=== PATIENT | female | born 1975 | race Two or more races ===

== ENCOUNTER 2020-04-08 02:11 | Emergency (ER) | payer SELFPAY ==
[~2020-04-08] VITALS: Ht 152.4 cm; Wt 125.6 kg
[2020-04-08 03:56] LABS: Basophils # (auto) 0.1 10 ^3/uL (0-0.2); Basophils % (auto) 0.5 % (0.0-2.0); Eosinophils # (auto) 0.1 10 ^3/uL (0-0.8); Eosinophils % (auto) 0.3 % (0.0-7.0); Hematocrit 41.3 % (36.0-46.0); Hemoglobin 13.8 g/dL (12.2-16.2); Lymphocytes # (auto) 0.7 10 ^3/uL (0.4-5.4); Lymphocytes % (auto) 4.8 % (10.0-50.0); Mean Corpuscular Hemoglobin 28.9 pg (28.0-32.0); Mean Corpuscular Hgb Conc. 33.4 g/dL (32.0-36.0); Mean Corpuscular Volume 86.5 fL (80.0-100.0); Monocytes # (auto) 0.6 10 ^3/uL (0-1.3); Monocytes % (auto) 4.2 % (0.0-12.0); Neutrophils # (auto) 13.8 10 ^3/uL (1.6-8.6); Neutrophils % (auto) 90.2 % (37.0-80.0); Platelet Count (auto) 382 10^3/uL (140-450); Red Blood Cells 4.78 10^6/uL (4.0-5.20); White Blood Cell 15.3 10^3/uL (4.4-10.8)
[2020-04-08 04:34] LABS: Alanine Aminotransferase 29 U/L (13-56); Albumin 4.1 g/dL (3.4-5.0); Anion Gap 9 (5-15); Aspartate Aminotransferase 17 U/L (15-37); BUN/Creatinine Ratio 14.9; Blood Urea Nitrogen 10 mg/dL (7-18); Calcium 8.4 mg/dL (8.5-10.1); Carbon Dioxide 21 mmol/L (21-32); Chloride 106 mmol/L (98-107); GFR African American 123 mL/min; GFR Non-African American 102 mL/min; Glucose 127 mg/dL (74-106); Magnesium 2.1 mg/dL (1.6-2.6); Potassium 3.5 mmol/L (3.5-5.1); Sodium 136 mmol/L (136-145)
[2020-04-08 04:39] LABS: Alkaline Phosphatase 60 U/L (45-117); Bilirubin, Total 1.2 mg/dL (0.2-1.0); Total Protein 7.9 g/dL (6.4-8.2)
[2020-04-08 04:41] LABS: INR 0.97 (0.9-1.15); Partial Thromboplastin Time 25.9 sec (23.0-31.2)
[2020-04-08] MEDS ORDERED: SODIUM CHLORIDE 0.9% 1,000 ML IV ONE ×2 (07:15)
[2020-04-08] MEDS ORDERED: ONDANSETRON HCL 4 MG/2 ML VIAL IV ONE (07:15)
[2020-04-08] MEDS ORDERED: KETOROLAC TROMETH 30 MG/ML 1ML VIAL IV ONE (09:15)
[2020-04-08 09:32] VITALS: BP 138/76
== END 2020-04-08 03:33 | disposition home or self-care (01) ==
LOC: ER 02:11
DX: K52.9 Noninfective gastroenteritis and colitis, unspecified (principal); D72.829 Elevated white blood cell count, unspecified; E86.0 Dehydration; K80.80 Other cholelithiasis without obstruction
CPT/HCPCS: 36415; 71045; 74176; 80053; 83735; 83880; 84443; 84484; 85025; 85610; 85730; 96361; 96374; 96375; 99285; J1885; J2405; J7030

== ENCOUNTER 2025-03-16 06:07 | Inpatient (IN) | payer MEDICAID ==
[2025-03-14 14:14] LABS: Hematocrit 39.8 % (36.0-46.0); Hemoglobin 13.5 g/dL (12.2-16.2); Mean Corpuscular Hemoglobin 28.9 pg (28.0-32.0); Mean Corpuscular Volume 85.1 fL (80.0-100.0); Nucleated Red Blood Cells % 0.1 %
[2025-03-14 14:20] LABS: Urine Protein, UAD Negative (Negative)
[2025-03-14 14:27] LABS: INR 1.02 (0.9-1.15); Partial Thromboplastin Time 26.0 SEC (24.5-34.5); Prothrombin Time 10.8 sec (9.3-11.8)
[2025-03-14 14:41] LABS: Alanine Aminotransferase 23 U/L (7-40); Alkaline Phosphatase 63 U/L (46-116); Calcium 9.4 mg/dL (8.7-10.4); Carbon Dioxide 26 mmol/L (20-31); Chloride 106 mmol/L (98-107); Glucose 91 mg/dL (74-106)
[2025-03-14 14:42] LABS: Albumin 4.7 g/dL (3.2-4.8); Anion Gap 11 (5-15); BUN/Creatinine Ratio 9.5 (10.0-20.0); Potassium 4.1 mmol/L (3.5-5.1); Sodium 143 mmol/L (136-145); Total Protein 7.4 g/dL (5.7-8.2)
[2025-03-14 14:47] LABS: Bilirubin, Total 1.3 mg/dL (0.2-1.0); Blood Urea Nitrogen 7 mg/dL (9-23)
[~2025-03-16] VITALS: Ht 154.9 cm; Wt 77.4 kg
[2025-03-16] MEDS ORDERED: hydrALAZINE HCL 20 MG/ML VL IV PRN (07:15)
[2025-03-16] MEDS ORDERED: METOCLOPRAMIDE HCL 5MG/ml INJ 2ml VIAL IV PRN (07:15)
[2025-03-16] MEDS ORDERED: fentaNYL CITRATE 100 MCG/2 ML VL ONE (07:15)
[2025-03-16] MEDS ORDERED: HYDROmorphone HCL 2 MG/ML VL/or syr IV PRN (07:15)
[2025-03-16] MEDS ORDERED: MIDAZOLAM HCL 2MG/2ML 2ml VIAL (1mg/ml) ONE (07:16)
[2025-03-16] MEDS ORDERED: METOCLOPRAMIDE HCL 5MG/ml INJ 2ml VIAL ONE (07:16)
[2025-03-16] MEDS ORDERED: LIDOCAINE 2% (LOCAL ANESTH.) PF 5ml SDV ONE (07:16)
[2025-03-16] MEDS ORDERED: PROPOFOL 10 MG/ML 20 ML IV ONE (07:16)
[2025-03-16] MEDS ORDERED: ONDANSETRON HCL 4 MG/2 ML VIAL ONE (07:16)
[2025-03-16] MEDS ORDERED: ROCURONIUM 10MG/ML 10ML VIAL IV ONE (07:16)
[2025-03-16] MEDS ORDERED: HYDROmorphone HCL 2 MG/ML VL/or syr ONE (07:52)
[2025-03-16] MEDS ORDERED: SUGAMMADEX 200mg/2ml Vial (100MG/ML) IV ONE (07:57)
[2025-03-16] MEDS: LIDOCAINE W/ EPINEPHRINE 1% 20ML VIAL ONE (08:06)
[2025-03-16] MEDS: BUPIVACAINE HCL 0.25% P/F 10 ML VIAL ONE (08:06)
[2025-03-16 08:26] VITALS: O2SAT 99
--- NOTE | 2025-03-16 08:48 | DVHOP ---
DATE OF SURGERY: 03/16/2025 PREOPERATIVE DIAGNOSES: Cholelithiasis, cholecystitis. POSTOPERATIVE DIAGNOSES: Cholelithiasis, cholecystitis. SURGEON: Robles Waldron MD. DIRECTOR EMPLOYEE COMMUNICATIONS: Justin Kitchen NP. ANESTHESIA: General endotracheal. ANESTHESIOLOGIST: Fernando Wiseman. PROCEDURES: Laparoscopy, laparoscopic cholecystectomy. DESCRIPTION OF PROCEDURE: Under general endotracheal anesthesia with the patient's skin prepped and draped, a supraumbilical incision was made and Veress needle inserted by the hanging drop technique to establish pneumoperitoneum to 15 mmHg pressure by insufflation with carbon dioxide. With the abdomen fully distended, the needle was removed and replaced with a 5 mm trocar port through which a 0-degree viewing laparoscope was inserted and under direct vision, additional 5 and 10 mm ports inserted, the 5 mm at the anterior axillary line on the right at the level of the umbilicus, the 10 mm port in the subxiphoid midline skin. Instrumentation was introduced and laparoscopy was performed. Laparoscopic examination revealed no unexpected pathology on the serosal surfaces visualized. The gallbladder was affected by acute cholecystitis with chronic changes. Adhesions between the omentum and the gallbladder were lysed sharply. The gallbladder was placed on tension. The cystic duct and cystic artery were identified, circumferentially dissected and traced into the hepatocystic triangle. The cystic duct was exceedingly short. It was skeletonized and the cystic duct and cystic artery were then divided between metallic strips as far away from the common duct as feasible, despite the short length of the cystic duct. Following division of these structures, the gallbladder was resected from its liver bed by electrocautery and traction. The fully mobilized gallbladder was extracted from the peritoneal cavity by placement in a specimen extraction bag, which was withdrawn through the 10 mm port site. The right upper quadrant was irrigated. Irrigant was aspirated. Hemostasis was meticulously inspected and found to be complete at the termination of the procedure. There was no evidence of bleeding from either the port sites or from the liver bed of the gallbladder. Instrumentation was withdrawn. Pneumoperitoneum was evacuated. Fascial defect closed using #0 Vicryl. The wounds were approximated using Monocryl sutures, Dermabond, glue, and Steri-Strips. The patient remained stable throughout the procedure, left the operating room following an accurate needle and sponge count. Her was thoroughly informed by phone. Robles Waldron MD PF/CONNER TID: [id number] RECEIPT: [id number]
[2025-03-16] MEDS ORDERED: D5W/SOD CHL 0.45%/KCL 20MEQ 1,000 ML IV SCH (09:45)
[2025-03-16] MEDS ORDERED: NITROGLYCERIN 0.4 MG SL TAB SL PRN (09:45)
[2025-03-16] MEDS ORDERED: MORPHINE SULFATE INJ 2 MG/ml SYRG IV PRN (09:45)
[2025-03-16] MEDS: ceFAZolin 2 GM/D5W50ml 50 ML IV ONE (10:00)
[2025-03-16] MEDS: ACETAMINOPHEN IV 1000 MG/100ML (10MG/ML) IV ONE (10:00)
[2025-03-16] MEDS: PANTOPRAZOLE 40 MG/10 ML VIAL INJ IV SCH (10:00)
--- NOTE | 2025-03-16 10:22 | DVHHP2 ---
Review of Systems Allergies: Coded Allergies: NO KNOWN ALLERGIES (Unverified , 03/16/25) Medications Current Medications Medications Dose Ordered Sig/Enrique Route Start Time Stop Time Status Last Admin Dose Admin Nitroglycerin 0.4 mg Q5MINP PRN SL 03/16/25 09:45 Morphine Sulfate 2 mg Q30M PRN IV 03/16/25 09:45 Potassium Chloride/Dextrose/ Sod Cl 1,000 ml @ 120 mls/hr Q8H20M IV 03/16/25 09:45 Cefazolin Sodium/ Dextrose 50 ml @ 50 mls/hr Q8HR IV 03/16/25 14:00 Hydromorphone HCl 1 mg Q3HPRN PRN IV 03/16/25 09:45 Acetaminophen/ Codeine Phosphate 1 tab Q4HP PRN PO 03/16/25 09:45 Pantoprazole Sodium 40 mg DAILY IV 03/16/25 10:00 Ondansetron HCl 4 mg Q4HPRN PRN IV 03/16/25 09:45 Exam Vital Signs Vital Signs Date Time Temp Pulse Resp B/P (MAP) Pulse Ox O2 Delivery O2 Flow Rate FiO2 03/16/25 09:45 60 10 103/62 (76) 97 03/16/25 09:38 Room Air 0 96 03/16/25 08:26 97.4 97.4 Labs/Xrays Labs Test 03/16/25 08:43 03/14/25 13:52 Range/Units POC Glucose 129 H 70-106 mg/dl White Blood Count 7.1 4.4-10.8 10^3/uL Red Blood Count 4.67 4.0-5.20 10^6/uL Hemoglobin 13.5 12.2-16.2 g/dL Hematocrit 39.8 36.0-46.0 % Mean Corpuscular Volume 85.1 80.0-100.0 fL Mean Corpuscular Hemoglobin 28.9 28.0-32.0 pg Mean Corpuscular Hemoglobin Concent 34.0 32.0-36.0 g/dL Red Cell Distribution Width 13.3 11.8-14.3 % Platelet Count 330 140-450 10^3/uL Mean Platelet Volume 7.1 6.9-10.8 fL Neutrophils (%) (Auto) 66.1 37.0-80.0 % Lymphocytes (%) (Auto) 18.1 10.0-50.0 % Monocytes (%) (Auto) 6.3 0.0-12.0 % Eosinophils (%) (Auto) 8.3 H 0.0-7.0 % Basophils (%) (Auto) 1.2 0.0-2.0 % Neutrophils # (Auto) 4.7 1.6-8.6 10 ^3/uL Lymphocytes # (Auto) 1.3 0.4-5.4 10 ^3/uL Monocytes # (Auto) 0.4 0-1.3 10 ^3/uL Eosinophils # (Auto) 0.6 0-0.8 10 ^3/uL Basophils # (Auto) 0.1 0-0.2 10 ^3/uL Nucleated Red Blood Cells 0.1 % Prothrombin Time 10.8 9.3-11.8 sec Prothrombin Time INR 1.02 0.9-1.15 Activated Partial Thromboplast Time 26.0 24.5-34.5 SEC Urine Color Light-yellow Yellow Urine Clarity Clear Clear Urine pH 6.5 5.0-9.0 Urine Specific [place] 1.023 1.001-1.035 Urine Protein Negative Negative Urine Ketones Negative Negative Urine Blood Trace H Negative /uL Urine Nitrite Negative Negative Urine Bilirubin Negative Negative Urine Urobilinogen Normal Negative mg/dL Urine Leukocyte Esterase Negative Negative /uL Urine RBC 5 0 - 4 /hpf Urine Microscopic WBC 2 0-5 /HPF Urine Squamous Epithelial Cells Few <5 /hpf Urine Bacteria None seen None Seen /hpf Urine Mucus Few None Seen Urine Glucose Normal Normal mg/dL Urine Test Negative Negative Sodium Level 143 136-145 mmol/L Potassium Level 4.1 3.5-5.1 mmol/L Chloride Level 106 98-107 mmol/L Carbon Dioxide Level 26 20-31 mmol/L Anion Gap 11 5-15 Blood Urea Nitrogen 7 L 9-23 mg/dL Creatinine 0.74 0.550-1.02 mg/dL Glomerular Filtration Rate Calc 99 >90 mL/min BUN/Creatinine Ratio 9.5 L 10.0-20.0 Serum Glucose 91 74-106 mg/dL Calcium Level 9.4 8.7-10.4 mg/dL Total Bilirubin 1.3 H 0.2-1.0 mg/dL Aspartate Amino Transferase (AST) 21 13-40 U/L Alanine Aminotransferase (ALT) 23 7-40 U/L Alkaline Phosphatase 63 46-116 U/L Total Protein 7.4 5.7-8.2 g/dL Albumin 4.7 3.2-4.8 g/dL SEPSIS Sepsis Screen Physician Orders Oxygen By Face Mask (03/16/25 07:05) Weather Analyst (03/16/25 07:05) Notify Anesth. For Changes: (03/16/25 07:05) Pulse Ox Assessment (03/16/25 07:05) Discharge To Room Per Criteria (03/16/25 07:05) Admit (03/16/25:31) Oxygen By Nasal Cannula (03/16/25:) Nitroglycerin Sublingual (Ntrostat Subli (03/16/25 09:45) Morphine Sulfate Injection (03/16/25 09:45) Stat Ekg For Chest Pain (03/16/25:) Notify Md Of Changes From Base (03/16/25:) Emergency Dysrhythmia Protocol (03/16/25:) To Pacu For Recovery (03/16/25 09:39) Oxygen Via Cool Mist Mask (03/16/25 09:39) Incentive Spirometry Q 1hr (03/16/25 09:39) Abdominal Binder (03/16/25 09:39) Sequential Compression Device (03/16/25 09:39) Clear Liq Diet (03/16/25 Lunch) Bilirubin, Total (03/17/25 04:00) D5w/Sod Chl 0.45%/Kcl 20meq (03/16/25 09:45) Cefazolin 2 Gm/J0y30tv (Ancef) (03/16/25 14:00) Hydromorphone Injection (Dilaudid Inject (03/16/25 09:45) Acetaminophen/Codeine Tablet (Tylenol W/ (03/16/25 09:45) Pantoprazole (Protonix) (03/16/25 10:00) Ondansetron Hcl (Zofran) (03/16/25 09:45) Page Hospitalist For Admission (03/16/25 09:39) Complete Blood Count (03/17/25 06:00) Comprehensive Metabolic Panel (03/17/25 06:00) Hemoglobin A1c (03/17/25 06:00) Glucose Blood (Accu-Chek Comfort Curve T (03/16/25 11:30) Mild Sliding Scale (03/16/25 11:30) Dextrose 50% Syringe (03/16/25 10:30) Vital Signs Date Time Temp Pulse Resp B/P (MAP) Pulse Ox O2 Delivery O2 Flow Rate FiO2 03/16/25 09:45 60 10 103/62 (76) 97 03/16/25 09:38 Room Air 0 96 03/16/25 09:26 56 10 110/57 (74) 99 03/16/25 09:11 62 11 108/62 (77) 99 03/16/25 08:56 70 10 122/59 (80) 98 03/16/25 08:41 Room Air 0 100 03/16/25 08:41 72 11 108/53 (71) 100 03/16/25 08:36 66 10 91/43 (59) 100 03/16/25 08:31 73 12 99/46 (63) 99 03/16/25 08:26 97.4 67 14 88/45 (59) 99 97.4 03/16/25 08:26 99 Mask 8.0 03/16/25 06:45 97.6 75 20 161/99 (119) 98 97.6 Medications Medications Dose Ordered Sig/Enrique Route Start Time Stop Time Status Last Admin Dose Admin Bupivacaine HCl 10 ml STK-MED ONCE .ROUTE 03/16/25 07:05 03/16/25 07:04 DC 03/16/25 08:06 10 ML Lidocaine/ Epinephrine 20 ml STK-MED ONCE .ROUTE 03/16/25 07:05 03/16/25 07:04 DC 03/16/25 08:06 10 ML Assessment/Plan Assessment/Plan SEE DICTATED NOTE Plan discussed with: Patient My Orders Orders - SANTA PERALTA MD Procedure Category Date Status Time Admit ADMIT 03/16/25 Transmitted 09:31 Oxygen By Nasal RT 03/16/25 Transmitted Cannula 09:31 Nitroglycerin PHA 03/16/25 In Process Sublingual (Ntrostat 09:45 Morphine Sulfate PHA 03/16/25 In Process Injection 09:45 Stat Ekg For Chest RAMONE 03/16/25 In Process Pain 09:31 Notify Md Of Changes RAMONE 03/16/25 In Process From Base 09:31 Emergency Dysrhythmia RAMONE 03/16/25 In Process Protocol 09:31 Complete Blood Count LAB 03/17/25 Verified 06:00 Comprehensive LAB 03/17/25 Verified Metabolic Panel 06:00 Hemoglobin A1c LAB 03/17/25 Verified 06:00 Glucose Blood PHA 03/16/25 Transmitted (Accu-Chek Comfort 11:30 Mild Sliding Scale PHA 03/16/25 Transmitted 11:30 Dextrose 50% Syringe PHA 03/16/25 Transmitted 10:30 Date of Service: Mar 16, 2025 Billing Provider: SANTA PERALTA MD Common Visit Codes: [id number] INP/OBS CARE (HIGH) SANTA PERALTA MD Mar 16, 2025 10:22
[2025-03-16] MEDS ORDERED: DEXTROSE (50%) 50ML SYRG IV PRN (10:30)
[2025-03-16] MEDS: LACTATED RINGER'S 1,000 ML IV SCH (10:30)
--- NOTE | 2025-03-16 10:30 | DVHHP ---
ADMIT DATE: 03/16/2025 HISTORY OF PRESENT ILLNESS: The patient is a 49-year-old lady who is admitted after she underwent laparoscopic cholecystectomy for cholelithiasis and chronic cholecystitis. The patient at this time denies any significant pain. No chest pain, no shortness of breath, no nausea or vomiting. REVIEW OF SYSTEMS: Review of rest of the systems is otherwise currently negative. PAST MEDICAL HISTORY: Significant for diabetes, hypertension, hyperlipidemia. MEDICATIONS: Unknown at this time. ALLERGIES: No known drug allergies. SOCIAL HISTORY: Denies smoking or alcohol. Lives at home with family. FAMILY HISTORY: Negative. PHYSICAL EXAMINATION: GENERAL: The patient is awake and alert. VITAL SIGNS: Temperature of 97.4, pulse 60 per minute, blood pressure 103/62. SHEENT: Unremarkable. NECK: There is no JVD, no pedal edema. LUNGS: Equal bilaterally. No added sounds. CARDIOVASCULAR: S1 and S2 is regular without murmurs. ABDOMEN: Soft. Bowel sounds are hypoactive. NEUROLOGIC: Nonfocal. MUSCULOSKELETAL: Normal. ASSESSMENT AND PLAN: * Diabetes mellitus, for which she will be placed on sliding scale insulin. * Hypertension, for which blood pressure will be monitored. * Obesity. * Hyperlipidemia. * Status post laparoscopic cholecystectomy for cholelithiasis and chronic cholecystitis. The patient will be placed on a clear liquid diet with IV fluids and pain medications. Arun Paulson MD JLN/EKT TID: [id number] RECEIPT: [id number]
[2025-03-16] MEDS: ACCU-CHEK COMFORT CURVE STRIP VI SCH (11:30)
[2025-03-16] MEDS: InsuLIN REG 1unit/0.01ml Soln (100units/ml) SC SCH (11:30)
[2025-03-16] MEDS: ONDANSETRON HCL 4 MG/2 ML VIAL IV PRN ×2 (11:31→14:15)
[2025-03-16 12:15] VITALS: BP 118/72; PULSE 78; RESP 17; TEMP 97.4; O2SAT 97
[2025-03-16 13:00] VITALS: BP 115/85; PULSE 77; RESP 17; TEMP 97.4; O2SAT 97
[2025-03-16] MEDS: ceFAZolin 2 GM/D5W50ml 50 ML IV SCH (13:59)
[2025-03-16 17:00] VITALS: BP 125/78; PULSE 75; RESP 16; TEMP 98.2; O2SAT 98
[2025-03-16 20:00] VITALS: PULSE 89; RESP 18; O2SAT 96
[2025-03-16 21:00] VITALS: BP 116/70; PULSE 89; RESP 18; TEMP 98.1; O2SAT 96
[2025-03-16] MEDS: ACETAMINOPHEN/CODEINE#3 (300/30mg) TAB PO PRN (22:20)
[2025-03-17] VITALS (7 sets, daily range): BP systolic 103–135; BP diastolic 63–91; PULSE 75–89; RESP 18–20; TEMP 98.1–99.5; O2SAT 91–96
[2025-03-17 05:52] LABS: Hematocrit 36.0 % (36.0-46.0); Hemoglobin 12.3 g/dL (12.2-16.2); Mean Corpuscular Hemoglobin 29.4 pg (28.0-32.0); Mean Corpuscular Volume 86.0 fL (80.0-100.0); Nucleated Red Blood Cells % 0.0 %
[2025-03-17 06:06] LABS: Alkaline Phosphatase 55 U/L (46-116); Anion Gap 11 (5-15); BUN/Creatinine Ratio 10.6 (10.0-20.0); Carbon Dioxide 25 mmol/L (20-31); Chloride 105 mmol/L (98-107); Glucose 104 mg/dL (74-106); Potassium 3.6 mmol/L (3.5-5.1); Sodium 141 mmol/L (136-145); Total Protein 6.2 g/dL (5.7-8.2)
[2025-03-17 06:08] LABS: Albumin 3.8 g/dL (3.2-4.8)
[2025-03-17 06:13] LABS: Alanine Aminotransferase 46 U/L (7-40); Bilirubin, Total 1.8 mg/dL (0.2-1.0); Blood Urea Nitrogen 7 mg/dL (9-23); Calcium 8.6 mg/dL (8.7-10.4)
[2025-03-17] MEDS: HYDROmorphone HCL 2 MG/ML VL/or syr IV PRN (13:48)
--- NOTE | 2025-03-17 14:35 | DVHDS2 ---
Discharge Summary Date of Admission Mar 16, 2025 at 09:31 Date of Discharge: Mar 17, 2025 Labs/Diagnostic Data: Laboratory Results Test 03/17/25 12:00 03/17/25 04:44 03/14/25 13:52 POC Glucose 120 mg/dl (70-106) White Blood Count 10.4 10^3/uL (4.4-10.8) Red Blood Count 4.19 10^6/uL (4.0-5.20) Hemoglobin 12.3 g/dL (12.2-16.2) Hematocrit 36.0 % (36.0-46.0) Mean Corpuscular Volume 86.0 fL (80.0-100.0) Mean Corpuscular Hemoglobin 29.4 pg (28.0-32.0) Mean Corpuscular Hemoglobin Concent 34.2 g/dL (32.0-36.0) Red Cell Distribution Width 13.3 % (11.8-14.3) Platelet Count 257 10^3/uL (140-450) Mean Platelet Volume 7.4 fL (6.9-10.8) Neutrophils (%) (Auto) 79.7 % (37.0-80.0) Lymphocytes (%) (Auto) 10.5 % (10.0-50.0) Monocytes (%) (Auto) 8.0 % (0.0-12.0) Eosinophils (%) (Auto) 1.2 % (0.0-7.0) Basophils (%) (Auto) 0.6 % (0.0-2.0) Neutrophils # (Auto) 8.3 10 ^3/uL (1.6-8.6) Lymphocytes # (Auto) 1.1 10 ^3/uL (0.4-5.4) Monocytes # (Auto) 0.8 10 ^3/uL (0-1.3) Eosinophils # (Auto) 0.1 10 ^3/uL (0-0.8) Basophils # (Auto) 0.1 10 ^3/uL (0-0.2) Nucleated Red Blood Cells 0.0 % Sodium Level 141 mmol/L (136-145) Potassium Level 3.6 mmol/L (3.5-5.1) Chloride Level 105 mmol/L (98-107) Carbon Dioxide Level 25 mmol/L (20-31) Anion Gap 11 (5-15) Blood Urea Nitrogen 7 mg/dL (9-23) Creatinine 0.66 mg/dL (0.550-1.02) Glomerular Filtration Rate Calc 107 mL/min (>90) BUN/Creatinine Ratio 10.6 (10.0-20.0) Serum Glucose 104 mg/dL (74-106) Hemoglobin A1c 5.6 % A1C (<5.7) Calcium Level 8.6 mg/dL (8.7-10.4) Total Bilirubin 1.8 mg/dL (0.2-1.0) Aspartate Amino Transferase (AST) 42 U/L (13-40) Alanine Aminotransferase (ALT) 46 U/L (7-40) Alkaline Phosphatase 55 U/L (46-116) Total Protein 6.2 g/dL (5.7-8.2) Albumin 3.8 g/dL (3.2-4.8) Prothrombin Time 10.8 sec (9.3-11.8) Prothrombin Time INR 1.02 (0.9-1.15) Activated Partial Thromboplast Time 26.0 SEC (24.5-34.5) Urine Color Light-yellow (Yellow) Urine Clarity Clear (Clear) Urine pH 6.5 (5.0-9.0) Urine Specific [place] 1.023 (1.001-1.035) Urine Protein Negative (Negative) Urine Ketones Negative (Negative) Urine Blood Trace /uL (Negative) Urine Nitrite Negative (Negative) Urine Bilirubin Negative (Negative) Urine Urobilinogen Normal mg/dL (Negative) Urine Leukocyte Esterase Negative /uL (Negative) Urine RBC 5 /hpf (0 - 4) Urine Microscopic WBC 2 /HPF (0-5) Urine Squamous Epithelial Cells Few /hpf (<5) Urine Bacteria None seen /hpf (None Seen) Urine Mucus Few (None Seen) Urine Glucose Normal mg/dL (Normal) Urine Test Negative (Negative) Other Laboratory Tests 03/17/25 04:44 Brief Hx & Hospital Course: SEE DICTATED NOTE Condition at Discharge: Good Final Diagnosis/Problems List LAP [facility] Discharge Disposition: Home Discharge Instruct/Medications Diet: Regular Activity: No Restrictions, As Tolerated Follow Up/Referral: SCHEDULE APPT WITH DR WRIGHT IN 1 WK Medications: RESUME HOME MEDS SCRIPT TO PHARMACY [place] HOME IF OK WITH DR WRIGHT Discharge Statement: "Patient was advised to return to the ER or call 911 if any headaches, dizziness, shortness of breath, chest pain, abdominal pain, bleeding, fevers, or worsening of medical condition. Patient was counseled about treatment plan, medications, possible side effects, patientverbalized understanding. All questions were answered to the best of my ability. This discharge took greater then 30 minutes in planning, reviewing documentation, counseling the patient, and discussing with other team members." ASSESSMENT ASSESSMENT Assessment [facility] Date of Service: Mar 17, 2025 Billing Provider: SANTA PERALTA MD Common Visit Codes: [id number] DISCH DAY >30min SANTA PERALTA MD Mar 17, 2025 14:34
[2025-03-17] MEDS ORDERED: HYDR1TAB97 PO (14:36)
[2025-03-17] MEDS ORDERED: DOCU-94 PO (14:36)
[2025-03-17] MEDS ORDERED: CEPH500T PO (14:36)
--- NOTE | 2025-03-17 15:07 | DVHPN2 ---
Subjective Date Seen: Mar 17, 2025 Post op day Post op day: 1 General: Normal HNT: Normal Cardiovascular: Normal Respiratory: Normal Gastrointestinal: Abdominal Pain Genitourinary: Normal Musculoskeletal: Normal Neurological: Normal Objective Vitals Vital Sign Date Time Temp Pulse Resp B/P (MAP) Pulse Ox O2 Delivery O2 Flow Rate FiO2 03/17/25 13:48 81 18 115/75 03/17/25 13:00 99.5 96 99.5 03/17/25 08:00 Room Air* 0 21 Total Intake and Output 03/16/25 03/16/25 03/17/25 15:00 23:00 07:00 Intake Total 700 ml Balance 700 ml Medications Current Medications Medications Dose Ordered Sig/Enrique Route Start Time Stop Time Status Last Admin Dose Admin Nitroglycerin 0.4 mg Q5MINP PRN SL 03/16/25 09:45 Morphine Sulfate 2 mg Q30M PRN IV 03/16/25 09:45 Cefazolin Sodium/ Dextrose 50 ml @ 50 mls/hr Q8HR IV 03/16/25 14:00 03/17/25 13:46 50 MLS/HR Hydromorphone HCl 1 mg Q3HPRN PRN IV 03/16/25 09:45 03/17/25 13:48 1 MG Acetaminophen/ Codeine Phosphate 1 tab Q4HP PRN PO 03/16/25 09:45 03/17/25 10:38 1 TAB Pantoprazole Sodium 40 mg DAILY IV 03/16/25 10:00 03/17/25 10:00 40 MG Ondansetron HCl 4 mg Q4HPRN PRN IV 03/16/25 09:45 03/16/25 14:15 4 MG Diagnostic Test (Pha) 1 strip ACHS 03/16/25 11:30 03/17/25 11:30 1 STRIP Insulin Human Regular ACHS SC 03/16/25 11:30 03/16/25 22:14 2 UNITS Dextrose 50 ml UD PRN IV 03/16/25 10:30 Lactated Ringer's 1,000 ml @ 120 mls/hr Q8H20M IV 03/16/25 10:30 03/17/25 11:30 120 MLS/HR General: Normal, Well developed Head/Eyes: Normal ENT: Normal Neck: Normal, Supple Lungs: Normal, Normal inspection Cardiovascular: Normal Labs and Microbiology Laboratory Tests 03/17/25 04:44 Test 03/17/25 04:44 Range/Units Serum Glucose 104 74-106 mg/dL Ass/Plan Assessment/Plan Subjective: - Reports postoperative pain at the cholecystectomy incision site. The pain is localized to where the gallbladder was, - Reports having had significant nausea and vomiting yesterday, - Denies current nausea or vomiting. - Has not had a bowel movement or passed flatus since the surgery. - Reports ambulating to the restroom. Plan: ok to remove abdominal binder encouraged to ambulate total bilirubin 1.8 ( redraw tomorrow am ) continue IV antibiotics Plan discussed with patient Visit Coding Surgery Date of Service if different f: Mar 17, 2025 Billing Provider: DEEPIKA WRIGHT MD Surgery Visit Codes: [id number] INP/OBS CARE(HIGH) ADRIÁN WARD NP Mar 17, 2025 15:07
--- NOTE | 2025-03-17 15:34 | DVHDS ---
DATE OF DISCHARGE: 03/17/2025 HISTORY OF PRESENT ILLNESS: The patient is a 49-year-old lady who was admitted after she underwent laparoscopic cholecystectomy for cholelithiasis and chronic cholecystitis. She has a history of diabetes, hypertension, and hyperlipidemia. HOSPITAL COURSE: The patient did well postoperatively. The patient's hemoglobin A1c was 5.6. She is tolerating an old diet. She will now be discharged home if cleared by Surgery, to be on [place] p.r.n. for pain, Colace p.r.n. for constipation and cephalexin 500 mg t.i.d. for 7 days. She will follow up with Dr. Robles Waldron in 1 week. FINAL DIAGNOSES: Therefore: * Diabetes mellitus. * Hypertension. * Hyperlipidemia. * Obesity. * Status post laparoscopic cholecystectomy for cholelithiasis and chronic cholecystitis. Time spent in discharge planning and review of plan with the patient and nursing was 38 minutes. MD MICHAEL David/PAO TID: [id number] RECEIPT: [id number]
[2025-03-18 01:00] VITALS: BP 122/78; PULSE 84; RESP 20; TEMP 99.8; O2SAT 94
[2025-03-18 05:22] VITALS: BP 130/80; PULSE 89; RESP 20; TEMP 98.9; O2SAT 94
[2025-03-18 07:16] LABS: Hematocrit 35.7 % (36.0-46.0); Hemoglobin 12.2 g/dL (12.2-16.2); Mean Corpuscular Hemoglobin 29.2 pg (28.0-32.0); Mean Corpuscular Volume 85.6 fL (80.0-100.0); Nucleated Red Blood Cells % 0.1 %
[2025-03-18 08:00] VITALS: PULSE 84; RESP 16; O2SAT 94
[2025-03-18 09:00] VITALS: BP 128/77; PULSE 84; RESP 16; TEMP 99.8; O2SAT 94
[2025-03-18 12:38] VITALS: BP 137/83; PULSE 91; RESP 17; TEMP 97.9; O2SAT 96
== END 2025-03-18 15:40 | disposition home or self-care (01) | DRG 263 ==
LOC: SUR 06:07 → OVERFLOW 09:31 → WEST WING 12:02
PROVIDERS: ADMIT Internal Medicine; ATTEND Internal Medicine
PROC: 0FT44ZZ Resection of Gallbladder, Percutaneous Endoscopic Approach (ICD-10-PCS; principal; 2025-03-16 07:23)
DX: K80.12 Calculus of gallbladder with acute and chronic cholecystitis without obstruction (principal); E11.9 Type 2 diabetes mellitus without complications; E66.9 Obesity, unspecified; I10 Essential (primary) hypertension; E78.5 Hyperlipidemia, unspecified; K66.0 Peritoneal adhesions (postprocedural) (postinfection); G89.18 Other acute postprocedural pain; Z68.32 Body mass index [BMI] 32.0-32.9, adult
CPT/HCPCS: 36415; 80053; 81001; 81025; 82247; 82962; 83036; 85025; 85610; 85730; 86850; 86900; 86901; G0378; J1815; J2003; J2250; J2405; J2470; J2704; J3490